=== PATIENT | male | born 1995 | race Caucasian/White ===

== ENCOUNTER 2024-03-08 18:57 | Emergency (ER) | payer BC ==
[2024-03-08] MEDS: Lidocaine 1% 10 ML MDV INJECT ONE (19:52)
[2024-03-08] MEDS: Diphtheria,Pertussis(Acell),Tetanus Vaccine 0.5 ML Syringe IM ONE (20:16)
== END 2024-03-08 20:30 | disposition home or self-care (01) ==
LOC: JD.ED 18:57
DX: S61.411A Laceration without foreign body of right hand, initial encounter (principal); Z79.899 Other long term (current) drug therapy; Z23 Encounter for immunization; W26.8XXA Contact with other sharp object(s), not elsewhere classified, initial encounter; Y92.009 Unspecified place in unspecified non-institutional (private) residence as the place of occurrence of the external cause; Y93.89 Activity, other specified
CPT/HCPCS: 12002; 90471; 90715; 99282-25; J3490